=== PATIENT | female | born 1995 | race Caucasian/White ===

== ENCOUNTER 2020-03-21 02:49 | Emergency (ER) | payer MEDICAID, SELFPAY ==
[~2020-03-21] VITALS: Ht 165.1 cm; Wt 108.9 kg
[2020-03-21 02:53] VITALS: BP_SYST 94
--- NOTE | 2020-03-21 02:53 | NUR ---
Patient triaged and placed in the tent. VSS and patient appears in no acute distress at this time. Accompanied by fam member, awaiting available bed, and MD notified of need for MSE.
--- NOTE | 2020-03-21 02:54 | NUR ---
ER at bedside examining patient.
--- NOTE | 2020-03-21 03:12 | NUR ---
Patient given written and verbal discharge instructions Dr Manzanares and verbalizes understanding. ER MD discussed with patient the results and treatment provided. Patient in stable condition. ID arm band removed. Rx of Dexamethasone,Azithromycin given. Patient educated on pain management and to follow up with PMD. Pain Scale 5 10. Opportunity for questions provided and answered. Medication side effect fact sheet provided.
[2020-03-21 03:19] VITALS: BP_SYST 100
== END 2020-03-21 03:19 | disposition home or self-care (01) ==
LOC: SED 02:49
DX: J20.8 Acute bronchitis due to other specified organisms (principal)
CPT/HCPCS: 99283

== ENCOUNTER 2020-09-22 19:42 | Emergency (ER) | payer MEDICAID, SELFPAY ==
[~2020-09-22] VITALS: Ht 165.1 cm; Wt 104.3 kg
[2020-09-22 19:47] VITALS: BP_SYST 144
[2020-09-22] MEDS ORDERED: NACL 0.9% 1,000 ML IV ONE (20:15)
[2020-09-22] MEDS ORDERED: ACETAMINOPHEN 500 MG TABLET PO ONE (20:15)
[2020-09-22] MEDS ORDERED: KETOROLAC TROMETHAMINE 15 MG VIAL IVP ONE (20:45)
[2020-09-22 20:47] LABS: BASOPHILS # (AUTO) 0.1 K/uL (0.0-0.2); BASOPHILS % (AUTO) 0.7 % (0.0-2.0); EOSINOPHILS # (AUTO) 0.4 K/uL (0.0-0.4); EOSINOPHILS % (AUTO) 2.9 % (0.0-4.0); HEMATOCRIT 45.1 % (36-48); HEMOGLOBIN 15.4 g/dL (12.0-16.0); LYMPHOCYTES # (AUTO) 4.2 K/uL (1.0-5.5); LYMPHOCYTES % (AUTO) 32.2 % (20.5-51.5); MEAN CORPUSCULAR HEMOGLOBIN 29 pg (27-31); MEAN CORPUSCULAR HGB CONC 34 % (32-36); MEAN CORPUSCULAR VOLUME 84 fL (79.0-98.0); MONOCYTES # (AUTO) 0.7 K/uL (0.0-1.0); MONOCYTES % (AUTO) 5.6 % (1.7-9.3); NEUTROPHILS # (AUTO) 7.7 K/uL (1.8-7.7); NEUTROPHILS % (AUTO) 58.6 % (40.0-70.0); PLATELET COUNT (AUTO) 387 K/uL (130-430); RED BLOOD CELL COUNT(AUTO) 5.34 MIL/uL (4.2-6.2); RED CELL DISTRIBUTION WIDTH 14.5 % (9.0-15.0); WHITE BLOOD COUNT (AUTO) 13.1 K/uL (4.8-10.8)
[2020-09-22 20:58] LABS: CALCIUM 9.1 mg/dL (8.4-11.0); CREATININE 0.84 mg/dL (0.55-1.30); POTASSIUM 3.9 mmol/L (3.5-5.1)
[2020-09-22 21:11] LABS: ALBUMIN 3.5 g/dL (3.4-4.8); TOTAL BILIRUBIN 0.2 mg/dL (0.0-1.0)
[2020-09-22 22:10] VITALS: BP_SYST 144
== END 2020-09-22 22:10 | disposition home or self-care (01) ==
LOC: SED 19:42
DX: J06.9 Acute upper respiratory infection, unspecified (principal); Z20.822 Contact with and (suspected) exposure to COVID-19
CPT/HCPCS: 36415; 71045; 80053; 81025; 83605; 84484; 85025; 85379; 86710; 87040; 87426; 96361; 96374; 99284; J1885; J7030; 93005

== ENCOUNTER 2021-02-16 03:11 | Emergency (ER) | payer MEDICAID, SELFPAY ==
[~2021-02-16] VITALS: Ht 165.1 cm; Wt 122.5 kg
[2021-02-16 03:22] VITALS: BP_SYST 115
[2021-02-16] MEDS ORDERED: ACETAMINOPHEN 500 MG TABLET ONE (04:21)
[2021-02-16 05:13] LABS: BASOPHILS # (AUTO) 0.1 K/uL (0.0-0.2); BASOPHILS % (AUTO) 0.8 % (0.0-2.0); EOSINOPHILS # (AUTO) 0.6 K/uL (0.0-0.4); HEMATOCRIT 43.1 % (36-48); HEMOGLOBIN 14.5 g/dL (12.0-16.0); LYMPHOCYTES % (AUTO) 31.8 % (20.5-51.5); MEAN CORPUSCULAR HEMOGLOBIN 29 pg (27-31); MEAN CORPUSCULAR HGB CONC 34 % (32-36); MEAN CORPUSCULAR VOLUME 86 fL (79.0-98.0); MONOCYTES # (AUTO) 0.8 K/uL (0.0-1.0); MONOCYTES % (AUTO) 6.4 % (1.7-9.3); PLATELET COUNT (AUTO) 377 K/uL (130-430); RED BLOOD CELL COUNT(AUTO) 4.99 MIL/uL (4.2-6.2); RED CELL DISTRIBUTION WIDTH 13.6 % (9.0-15.0); WHITE BLOOD COUNT (AUTO) 12.4 K/uL (4.8-10.8)
[2021-02-16 05:14] LABS: ANION GAP 9 (5-15); CALCIUM 8.9 mg/dL (8.4-11.0); CHLORIDE 102 mmol/L (98-107); CREATININE 0.81 mg/dL (0.55-1.30); GLUCOSE 118 mg/dL (70-99); POTASSIUM 3.8 mmol/L (3.5-5.1); SODIUM SERUM 138 mmol/L (136-145); UREA NITROGEN, BLOOD 12 mg/dL (8-21)
[2021-02-16 05:25] LABS: ALANINE AMINOTRANSFERASE 31 U/L (12-78); ALBUMIN 3.3 g/dL (3.4-4.8); ASPARTATE AMINOTRANSFERASE 13 U/L (10-37); TOTAL BILIRUBIN 0.1 mg/dL (0.0-1.0)
[2021-02-16 05:27] LABS: GFR AFRICAN AMERICAN 112 mL/min (>90); HCG,QUANTITATIVE 3 mIU/ML (0-6)
[2021-02-16] MEDS ORDERED: ALBU8.5H8 INH (06:11)
[2021-02-16] MEDS ORDERED: PRED20TA PO (06:11)
[2021-02-16 06:38] VITALS: BP_SYST 115
== END 2021-02-16 06:38 | disposition home or self-care (01) ==
LOC: SED 03:11
DX: J06.9 Acute upper respiratory infection, unspecified (principal); Z79.899 Other long term (current) drug therapy; Z20.822 Contact with and (suspected) exposure to COVID-19
CPT/HCPCS: 36415; 71045; 80053; 84484; 84702; 85025; 93005; 99285

== ENCOUNTER 2021-04-16 09:50 | Emergency (ER) | payer MEDICAID, SELFPAY ==
[~2021-04-16] VITALS: Ht 165.1 cm; Wt 106.6 kg
[~2021-04-16 09:50] MED LIST: ALBU8.5H8 INH; PRED20TA PO
[2021-04-16 09:55] VITALS: BP_SYST 114
--- NOTE | 2021-04-16 09:55 | NUR ---
Placed in room 3 . Placed on [employer] technical architect, blood pressure machine and pulse oximeter. To gown for exam. Side rails up. Report given to REBECA FORTE.
--- NOTE | 2021-04-16 10:00 | NUR ---
PT AMBULATES WITH STEADY GAIT TO BATHROOM TO PROVIDE URINE SAMPLE
--- NOTE | 2021-04-16 10:15 | NUR ---
RECEIVED PT STABLE, NAD, VSS, COMPLAINTS OF ABDOMINAL N/V AND PAIN, POSSIBLE MENSTRUAL BLEEDING, HOWEVER, PT UNSURE. PT TO BE FURTHER ASSESSED BY ED MD FOR DISPOSITION WITH PLAN OF CARE.
--- NOTE | 2021-04-16 10:15 | NUR ---
ED MD AT BEDSIDE FOR ASSESSMENT AND DISPOSITION WITH PLAN OF CARE.
--- NOTE | 2021-04-16 10:27 | NUR ---
PT DISCHARGED HOME STABLE IN NAD, VSS, MEDICATIONS GIVEN, AFTER VISIT GIVEN.
[2021-04-16] MEDS ORDERED: IMO2 PO (10:30)
[2021-04-16] MEDS ORDERED: ONDA4TAB5 PO (10:30)
[2021-04-16] MEDS ORDERED: ONDANSETRON 4 MG ODT TAB PO ONE (10:30)
[2021-04-16] MEDS ORDERED: IBUP-1969 PO (10:30)
[2021-04-16] MEDS ORDERED: LOPERAMIDE HCL 2 MG CAPSULE PO ONE (10:30)
== END 2021-04-16 10:27 | disposition home or self-care (01) ==
LOC: SED 09:50
DX: N93.8 Other specified abnormal uterine and vaginal bleeding (principal); R11.2 Nausea with vomiting, unspecified; R19.7 Diarrhea, unspecified; F17.200 Nicotine dependence, unspecified, uncomplicated; Z91.018 Allergy to other foods
CPT/HCPCS: 81002; 81025; 99283; Q0162

== ENCOUNTER 2022-03-04 13:26 | Emergency (ER) | payer MEDICAID ==
[~2022-03-04] VITALS: Ht 165.1 cm; Wt 124.7 kg
[~2022-03-04 13:26] MED LIST changes: +IBUP-1969 PO; +IMO2 PO; +ONDA4TAB5 PO
[2022-03-04 13:41] VITALS: BP_SYST 145
[2022-03-04] MEDS ORDERED: NAPR-686 PO (16:50)
== END 2022-03-04 17:04 | disposition home or self-care (01) ==
LOC: SED 13:26
DX: S46.001A Unspecified injury of muscle(s) and tendon(s) of the rotator cuff of right shoulder, initial encounter (principal); Z91.018 Allergy to other foods; Z79.899 Other long term (current) drug therapy; X50.0XXA Overexertion from strenuous movement or load, initial encounter; Y93.K9 Activity, other involving animal care; Y92.89 Other specified places as the place of occurrence of the external cause; Y99.8 Other external cause status
CPT/HCPCS: 73030; 99283